=== PATIENT | female | born 1980 | race Hispanic/Latino ===

== ENCOUNTER 2020-02-10 09:17 | Emergency (ER) | payer BC, OTHER ==
[2020-02-10] MEDS ORDERED: CEFTRIAXONE SODIUM 1 GM ONE (09:37)
[2020-02-10] MEDS ORDERED: LIDOCAINE HCL-MPF 1% 2ML VIAL ONE (09:37)
[2020-02-10] MEDS ORDERED: IBUPROFEN 400 MG TABLET ONE (09:37)
[2020-02-10] MEDS ORDERED: IBUPROFEN 200 MG TAB ONE (09:38)
== END 2020-02-10 10:08 | disposition home or self-care (01) ==
LOC: EDH 09:17
DX: U07.1 COVID-19 (principal); R05 Cough; J02.9 Acute pharyngitis, unspecified
CPT/HCPCS: 36415; 96372; 99284; J0696; J3490; U0003

== ENCOUNTER 2020-03-01 11:12 | Emergency (ER) | payer BC | END 2020-03-01 11:50 | disposition home or self-care (01) | LOC: EDH 11:12 | DX: U07.1 COVID-19 (principal); Z98.890 Other specified postprocedural states | CPT/HCPCS: 99281 ==

== ENCOUNTER 2023-07-06 07:59 | Emergency (ER) | payer BC ==
[~2023-07-06] VITALS: Ht 149.9 cm; Wt 68.0 kg
[2023-07-06 08:28] LABS: RAPID GROUP A STREP negative (NEGATIVE)
[2023-07-06] MEDS ORDERED: ACETAMINOPHEN 500 MG TABLET ONE (08:30)
[2023-07-06 08:33] LABS: SARS-CoV-2, RNA, NAAT NEGATIVE SARS CoV-2 (NEGATIVE)
[2023-07-06 08:39] LABS: INFLUENZA TYPE A Negative For Type A (NEGATIVE)
[2023-07-06 08:42] LABS: INFLUENZA TYPE B Positive For Type B (NEGATIVE)
[2023-07-06] MEDS ORDERED: ACETAMINOPHEN 500 MG TABLET PO ONE (09:00)
[2023-07-06] MEDS ORDERED: D-ME118S56 PO (09:10)
[2023-07-06 09:24] VITALS: BP 112/66; PULSE 73; RESP 18; O2SAT 100
[2023-07-06 09:25] VITALS: TEMP 99.5
== END 2023-07-06 09:24 | disposition home or self-care (01) ==
LOC: EDH 07:59
DX: J10.1 Influenza due to other identified influenza virus with other respiratory manifestations (principal); Z90.49 Acquired absence of other specified parts of digestive tract; Z20.822 Contact with and (suspected) exposure to COVID-19
CPT/HCPCS: 99283; 87635; 87880; 87804 ×2; C9803